=== PATIENT | female | born 1960 | race Two or more races ===

== ENCOUNTER 2025-10-14 10:32 | Outpatient (AMB) | payer OTHER, SELFPAY ==
--- NOTE | 2025-10-14 10:37 | A.PHYSOV ---
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 Surgical History H/O: hysterectomy History of carpal tunnel surgery History of cancer surgery Social History Alcohol intake: current Alcohol intake frequency: does not drink Patient Tobacco Use Status: Never used Tobacco Current occupational status: employed Office Procedures AMB Hip Injection AMB Hip Injection Procedure Details: Bilateral Greater trochanteric bursal injection: The risks, benefits and complications of the left greater trochanteric bursitis/gluteal tendinopathy were discussed with the patient, including but not limited to infection, increased serum glucose, nerve damage, bleeding and pain. All questions were answered to the patient's satisfaction. Verbal consent was obtained. The patient was eager to proceed. Patient was cleansed with Betadine, ethyl chloride was then used to desensitize the skin. Using an a 25-gauge needle 40 mg of Kenalog and 3 mL 2% lidocaine were injected over the greater trochanter of maximal tenderness. The patient tolerated the procedure well without immediate complication. Postinjection instructions were given. The procedure was repeated on the right. Hip (Bursa) Injection - : Bilateral All charges added?: Procedure code (CPT) selection complete Office Meds Kenalog 40 mg/mL suspension for injection Performing Provider: RAMONA Price Performing Location: [facility] Administered by: RAMONA Price on 10/14/25 10:58 Dose Route Admin Location Dispensed Lot Number Expiration Date [facility] Tank Tender 40 mg intrabursal 1 mL [address]-6 [employer] Total Dispensed Waste 1 mL 0 % lidocaine (PF) 20 mg/mL (2 %) injection solution Performing Provider: RAMONA Price Performing Location: [facility] Administered by: RAMONA Price on 10/14/25 10:58 Dose Route Admin Location Dispensed Lot Number Expiration Date [facility] Tank Tender 60 mg intrabursal 50 mL 2659-5015-39 Total Dispensed Waste 50 mL 0 % Assessment & Plan Assessment & Plan (1) Greater trochanteric bursitis of both hips: Code(s): M70.61 - Trochanteric bursitis, right hip; M70.62 - Trochanteric bursitis, left hip Category: Medical Plan Ms. Cano is a 65-year-old female seen in evaluation today for bilateral hip bursitis. Today she consented to bilateral hip bursal injection. She was given post-injection instructions, recommend: Moist heat compresses for 15 minutes up to 5 times daily. Continue abduction exercises. Follow-up with our office as needed. Thank you for allowing me to participate in the care of your patient. Orders: Orders AMB Hip/Bursa Injection Today M70.61 - Trochanteric bursitis, right hip, M70.62 - Trochanteric bursitis, left hip Coding Level of Care Code Procedure Only Diagnoses Greater trochanteric bursitis of both hips M70.61; M70.62 CPT Codes AMB Hip Injection - Hip/Bursa Injection - 73134: Bilateral ([id number])
== END 2025-10-14 10:57 | disposition home or self-care (01) ==
LOC: HO.HPHYS 10:32
PROVIDERS: PCP Internal Medicine; Visit Provider Physician Assistant
DX: M70.61 Trochanteric bursitis, right hip (principal); M70.62 Trochanteric bursitis, left hip
CPT/HCPCS: 20610

== ENCOUNTER → 2025-10-14 10:32 | Outpatient (BNVA) | payer OTHER, SELFPAY | PROVIDERS: PCP Internal Medicine; Visit Provider Physician Assistant | DX: M70.61 Trochanteric bursitis, right hip (principal); M70.62 Trochanteric bursitis, left hip | CPT/HCPCS: 20610; J2003; J3301 ==